=== PATIENT | male | born 1970 | race Caucasian/White ===

== ENCOUNTER → 2021-10-07 | Day surgery (SDC) | payer OTHER ==
[~2021-10-07] MED LIST: APRISO0.375 GM PO; FLONASE 0.05% N16 GM; IBU800 MG PO; OMEPRAZOLE20 MG PO; PRILOSEC OTC20 MG PO; PROTONIX 40 MG40 M1 PO; VITAMIN D21250 MCG PO
== END | disposition home or self-care (01) ==
LOC: OR 05:54
DX: K51.00 Ulcerative (chronic) pancolitis without complications (principal); D12.8 Benign neoplasm of rectum; K64.0 First degree hemorrhoids; K21.9 Gastro-esophageal reflux disease without esophagitis; Z87.891 Personal history of nicotine dependence; Z79.899 Other long term (current) drug therapy; Z20.822 Contact with and (suspected) exposure to COVID-19
CPT/HCPCS: J2704; J7040